=== PATIENT | female | born 1995 | race Caucasian/White ===

== ENCOUNTER 2023-10-23 08:21 | Emergency (ER) | payer MEDICAID ==
[2023-10-23] MEDS ORDERED: Insulin Regular 300 UNITS/3 ML VIAL ONE (08:44)
[2023-10-23 08:55] LABS: #Basophils 0.1 thou/uL (0.0-0.2); #Eosinphils 0.1 thou/uL (0.0-0.7); #Lymphocytes 2.2 thou/uL (1.20-3.40); #Monocytes 0.9 thou/uL (0.11-0.59); %Basophils 1.4 % (0.0-1.0); %Eosinophils 1.4 % (0.0-10.0); %Lymphocytes 23.3 % (21.0-51.0); %Monocytes 9.4 % (0.0-10.0); %Neutrophils 64.5 % (42.0-75.0); Hematocrit 37.5 % (36.0-47.0); Hemoglobin 12.4 g/dL (12.0-16.0); Mean Corpuscular HGB CONC 32.9 g/dL (32.0-36.0); Mean Corpuscular Hemoglobin 31.8 pg (27.0-31.0); Mean Corpuscular Volume 96.4 fl (78.0-98.0); Mean Platelet Volume 6.6 fL (7.4-10.4); Platelet Count 299 10x3/uL (130-400); RBC Distribution Width 12.4 % (11.5-14.5); Red Blood Cell (RBC) Count 3.89 mill/uL (4.20-5.40); White Blood Cell (WBC) Count 9.3 10x3/uL (4.8-10.8)
[2023-10-23 09:06] LABS: BHCG - Serum Negative (NEGATIVE); Pregs Control Background? CLEAR/WHITE (CLR/WHITE); Pregs Control Bar Appear? YES (CONTROL BAR)
[2023-10-23 09:13] LABS: ALT (SGPT) 48 U/L (8-55); AST (SGOT) 36 U/L (5-34); Albumin 4.2 g/dL (3.5-5.0); Alkaline Phosphatase 64 U/L (40-110); Anion Gap 20 mmol/L (10-20); BUN (Urea Nitrogen) 21 mg/dL (7.0-18.7); Bilirubin, Total 1.5 mg/dL (0.2-1.2); Calc. Creatinine Clearance 0 mL/min (70-130); Calcium 9.4 mg/dL (7.8-10.44); Carbon Dioxide 18 mmol/L (22-29); Chloride 99 mmol/L (98-107); Estimated GFR 76; Globulin 2.8 g/dL (2.4-3.5); Potassium 4.8 mmol/L (3.5-5.1); Sodium 132 mmol/L (136-145)
[2023-10-23 09:29] LABS: Glucose 417 mg/dL (70-105)
== END 2023-10-23 09:59 | disposition home or self-care (01) ==
LOC: MADERS 08:21
DX: E10.65 Type 1 diabetes mellitus with hyperglycemia (principal)
CPT/HCPCS: 36416; 80053; 84703; 85025; 99284; 36415-59; J1815